=== PATIENT | female | born 1960 | race Caucasian/White ===

== ENCOUNTER 2021-12-24 12:54 | Day surgery (SDC) | payer BC ==
[2021-12-24] MEDS ORDERED: VEDOLIZUMAB 300 MG in SODIUM CHLORIDE 250 ML IVPB ONE (13:45)
[2021-12-24] MEDS ORDERED: SODIUM CHLORIDE 250 ML IV ONE (13:45)
[2021-12-24] MEDS ORDERED: ACETAMINOPHEN 500 MG TABLET (FP) PO ONE (13:45)
[2021-12-24 15:41] VITALS: BP 118/73; PULSE 69; RESP 18; TEMP 97.9
== END 2021-12-24 16:00 | disposition home or self-care (01) ==
LOC: FINFUSION 12:54 → FM/S 12:58 → FINFUSION 16:00
PROVIDERS: ATTEND Internal Medicine
PROC: 3E033GC Introduction of Other Therapeutic Substance into Peripheral Vein, Percutaneous Approach (ICD-10-PCS; principal; 2021-12-24)
PROC: 3E0337Z Introduction of Electrolytic and Water Balance Substance into Peripheral Vein, Percutaneous Approach (ICD-10-PCS; 2021-12-24)
DX: K51.30 Ulcerative (chronic) rectosigmoiditis without complications (principal)
CPT/HCPCS: 96365; J3380

== ENCOUNTER 2022-01-06 11:32 | Day surgery (SDC) | payer BC ==
[2022-01-06] MEDS ORDERED: ACETAMINOPHEN 500 MG TABLET (FP) PO ONE (13:00)
[2022-01-06] MEDS ORDERED: SODIUM CHLORIDE 500 ML IV ONE (13:00)
[2022-01-06] MEDS ORDERED: VEDOLIZUMAB 300 MG in SODIUM CHLORIDE 250 ML IVPB ONE (13:30)
[2022-01-06 13:33] VITALS: BP 114/65; PULSE 65; RESP 16; TEMP 98.1
== END 2022-01-06 13:37 | disposition home or self-care (01) ==
LOC: FM/S 11:32 → FINFUSION 11:32
PROVIDERS: ATTEND Internal Medicine
PROC: 3E033GC Introduction of Other Therapeutic Substance into Peripheral Vein, Percutaneous Approach (ICD-10-PCS; principal; 2022-01-06)
PROC: 3E0337Z Introduction of Electrolytic and Water Balance Substance into Peripheral Vein, Percutaneous Approach (ICD-10-PCS; 2022-01-06)
DX: K51.30 Ulcerative (chronic) rectosigmoiditis without complications (principal)
CPT/HCPCS: 96365; J3380

== ENCOUNTER 2022-02-03 11:36 | Day surgery (SDC) | payer BC ==
[2022-02-03] MEDS ORDERED: ACETAMINOPHEN 500 MG TABLET (FP) PO ONE (12:30)
[2022-02-03] MEDS ORDERED: SODIUM CHLORIDE 250 ML IV ONE (12:30)
[2022-02-03] MEDS ORDERED: VEDOLIZUMAB 300 MG in SODIUM CHLORIDE 250 ML IVPB ONE (13:00)
[2022-02-03 13:58] VITALS: BP 112/69; PULSE 64; RESP 17; TEMP 98.7
== END 2022-02-03 14:07 | disposition home or self-care (01) ==
LOC: FINFUSION 11:36 → FM/S 11:37 → FINFUSION 14:00
PROVIDERS: ATTEND Internal Medicine
PROC: 3E033GC Introduction of Other Therapeutic Substance into Peripheral Vein, Percutaneous Approach (ICD-10-PCS; principal; 2022-02-03)
PROC: 3E0337Z Introduction of Electrolytic and Water Balance Substance into Peripheral Vein, Percutaneous Approach (ICD-10-PCS; 2022-02-03)
DX: K51.30 Ulcerative (chronic) rectosigmoiditis without complications (principal)
CPT/HCPCS: 96365; J3380

== ENCOUNTER 2022-04-07 10:56 | Day surgery (SDC) | payer BC ==
[2022-04-07 12:13] VITALS: RESP 18; TEMP 98.1
[2022-04-07] MEDS ORDERED: VEDOLIZUMAB 300 MG in SODIUM CHLORIDE 250 ML IVPB ONE (12:15)
[2022-04-07] MEDS: SODIUM CHLORIDE 250 ML IV ONE ×2 (12:49→14:34)
[2022-04-07 14:33] VITALS: BP 107/71; PULSE 71
== END 2022-04-07 14:33 | disposition home or self-care (01) ==
LOC: FM/S 10:56 → FINFUSION 10:56 → FM/S 11:25 → FINFUSION 14:33
PROVIDERS: ATTEND Internal Medicine
PROC: 3E033GC Introduction of Other Therapeutic Substance into Peripheral Vein, Percutaneous Approach (ICD-10-PCS; principal; 2022-04-07)
DX: K51.311 Ulcerative (chronic) rectosigmoiditis with rectal bleeding (principal)
CPT/HCPCS: 96365; J3380

== ENCOUNTER 2022-06-07 10:36 | Day surgery (SDC) | payer BC, OTHER ==
[~2022-06-07 10:36] MED LIST: SODIUM CHLORIDE 250 ML IV ONE; VEDOLIZUMAB 300 MG in SODIUM CHLORIDE 250 ML IVPB ONE
[2022-06-07 14:45] VITALS: BP 128/70; PULSE 76; RESP 18; TEMP 98.7
== END 2022-06-07 14:46 | disposition home or self-care (01) ==
LOC: FINFUSION 10:36 → FM/S 11:48 → FINFUSION 14:46
PROVIDERS: ATTEND Internal Medicine
PROC: 3E033GC Introduction of Other Therapeutic Substance into Peripheral Vein, Percutaneous Approach (ICD-10-PCS; principal; 2022-06-07)
DX: K51.311 Ulcerative (chronic) rectosigmoiditis with rectal bleeding (principal)
CPT/HCPCS: 96365; J3380